=== PATIENT | female | born 1940 | race Caucasian/White ===

== ENCOUNTER 2017-01-02 16:41 | Emergency (ER) | payer OTHER, BC ==
--- NOTE | 2017-01-02 16:56 | PDOC ---
History of Present Illness - General History Source: Patient, Family Exam Limitations: No Limitations - History of Present Illness Initial Comments: 01/02/17 17:53 The patient is a 76 year old female, with a significant past medical history of C.Diff (resolved), shingles x2, who presents to the emergency department with lower back pain since Saturday morning. The daughter reports on Saturday taking the patient to an Urgent Care where she was discharged home with an medication ( cannot recall) after having negative lumbar spine x-rays. The daughter reports soon after taking the patient to her PCP, where she was prescribed a muscle relaxer, which has offered little to no relief of her pain since being prescribed. The daughter also notes finding a spot on her lower back that resembled her past shingles. The patient describes her pain as a burning sensation on both sides of her back that is localized at her lower back. The patients daughter reports giving her a heating pad and tylenol with no alleviation of her pain. She denies any recent lower back trauma or injury. She denies any SOB or chest pain. She denies any dysuria or cloudy urination. She denies any other complaints of pain. She denies recent fevers, chills, headache or dizziness. She denies recent nausea, vomit, diarrhea or constipation. Allergies: As per Nursing Notes. Past surgical history: Left THR (6 weeks ago), and right THR Social history: Nonsmoker. Denies EtOH use and recreational drug use. Primary Care Physician: <Gregory Arias - Last Filed: 01/02/17 17:53> - General History Source: Patient Exam Limitations: No Limitations <Bing Arroyo - Last Filed: 01/04/17 18:18> - General Chief Complaint: Back Pain Stated Complaint: back pain/uti/shingles Time Seen by Provider: 01/02/17 16:46 Past History <Gregory Arias - Last Filed: 01/02/17 17:53> - Psycho/Social/Smoking Cessation Hx Anxiety: No Suicidal Ideation: No Smoking History: Never smoked Hx Alcohol Use: No Substance Use Type: None <Bing Arroyo - Last Filed: 01/04/17 18:18> - Past Medical History Allergies/Adverse Reactions: Allergies Allergy/AdvReac Type Severity Reaction Status Date / Time celecoxib [From Celebrex] Allergy Unknown Verified 01/02/17 17:09 naproxen AdvReac Intermediate PALPITATION Verified 01/02/17 17:09 S Home Medications: Ambulatory Orders Cefpodoxime Proxetil [Vantin -] 100 mg PO BID #14 tablet 01/02/17 Cyclobenzaprine HCl [Flexeril 10 mg] 2.5 mg PO ASDIR PRN 01/02/17 Donepezil HCl [Aricept -] 0 mg PO DAILY 01/02/17 Review of Systems - Review of Systems Able to Perform ROS?: Yes Comments:: 01/02/17 17:53 GENERAL/CONSTITUTIONAL: No: fever, chills, weakness, loss of appetite. HEAD, EYES, EARS, NOSE AND THROAT: No: change in vision, ear pain, discharge, sore throat, throat swelling. CARDIOVASCULAR: No: chest pain, lightheadedness, palpitations, syncope RESPIRATORY: No: cough, shortness of breath, wheezing, hemoptysis, stridor. GASTROINTESTINAL: No: nausea, vomiting, diarrhea, abdominal cramping, rectal bleeding, constipation. GENITOURINARY: No: dysuria, hematuria, frequency, urgency, flank pain. MUSCULOSKELETAL: +Back pain. No: neck pain, joint pain, muscle swelling or pain SKIN : No: lesions, pallor, rash or easy bruising. NEUROLOGIC: No: headache, vertigo, paresthesias, weakness ENDOCRINE: No: unexplained weight gain or loss HEMATOLOGIC/LYMPHATIC: No: anemia, easy bleeding, swelling nodes. <Gregory Arias - Last Filed: 01/02/17 17:53> *Physical Exam - Vital Signs Last Vital Signs Temp Pulse Resp BP Pulse Ox 98 F 89 18 151/68 95 01/02/17 16:43 01/02/17 16:43 01/02/17 16:43 01/02/17 16:43 01/02/17 16:43 - Physical Exam Comments: 01/02/17 17:54 GENERAL: The patient is in no acute distress. HEAD: Normal with no signs of trauma. EYES: PERRLA, EOMI, sclera anicteric, conjunctiva clear. ENT: Ears normal, nares patent, oropharynx clear without exudates. Moist mucous membranes. NECK: Normal range of motion, supple without lymphadenopathy, JVD, or masses. LUNGS: Breath lori nds equal, clear to auscultation bilaterally. No wheezes, and no crackles. HEART: Regular rate and rhythm, normal S1 and S2 without murmur, rub or gallop. ABDOMEN: Soft, nontender, normoactive bowel sounds. No guarding, no rebound. No masses palpable. EXTREMITIES: Normal range of motion, no edema. No clubbing or cyanosis. No erythema, or tenderness. NEUROLOGICAL: Cranial nerves II through XII grossly intact. Normal speech. No focal neurological deficits. MUSCULOSKELETAL: Midline thoracic tenderness. SKIN: Warm, Dry, normal turgor, no rashes or lesions noted. <Gregory Arias - Last Filed: 01/02/17 17:53> ED Treatment Course - ADDITIONAL ORDERS Additional order review: Laboratory Results 01/02/17 17:32 Urine Color Yellow Urine Appearance Clear Urine pH 5.5 Ur Specific [place] 1.010 Urine Protein Negative Urine Glucose (UA) Negative Urine Ketones Negative Urine Blood Trace-lysed Urine Nitrite Positive Urine Bilirubin Negative Urine Urobilinogen 0.2 e.u/dl Ur Leukocyte Esterase 1+ H <Gregory Arias - Last Filed: 01/02/17 17:53> - LABORATORY CBC & Chemistry Diagram: 01/02/17 18:45 01/02/17 18:45 <Bing Arroyo - Last Filed: 01/04/17 18:18> Medical Decision Making - Medical Decision Making 01/02/17 16:56 A portion of this note was documented by scribe services under my direction. I have reviewed the details of the note, within reason, and agree with the documentation with the following case summary and management plan written by me. Nursing documentation reviewed and incorporated into medical decision making 01/02/17 18:18 THis is a 76 yo F brought in to the ER by her daughter due to back pain, concern for UTI, concern for shingles Symptoms began 5 days ago Pt has had lower back pain, and now upper back pain No trauma No fevers or chills No heavy lifting Pt describes pain as burning No radiation of pain into extremities or around the trunk Pain is now mild but it was more severe earlier Of note, patient's daughter is worried that she may have a urinary tract infection. Patient has a history of recurrent UTIs. Patient's daughter did a urine dipstick at home and states that was positive. 01/02/17 18:18 On examination right upper back lesion notes, with scab pt has midline thoracic tenderness to palpation Pt jumps in response to palpation of her back I do not believe this patient's presentation is consistent with Zoster She has midline tenderness, possible compress fracture 01/04/17 18:17 Laboratory Tests 01/02/17 17:32 Urine Ketones Negative Urine Blood Trace-lysed Urine Nitrite Positive Ur Leukocyte Esterase 1+ H Urine RBC 0-2 Urine WBC 10-20 Ur Epithelial Cells Few Urine Bacteria Many Labs pending Pt signed out to Dr Villegas anticipate discharge if labs nml Will reassess <Bing Arroyo - Last Filed: 01/04/17 18:18> *DC/Admit/Observation/Transfer - Attestations Scribe Attestion: 01/02/17 17:53 Documentation prepared by Gregory Arias, acting as medical or surgical instrument maker for Bing Arroyo MD. <Gregory Arias - Last Filed: 01/02/17 17:53> <Bing Arroyo - Last Filed: 01/04/17 18:18> Diagnosis at time of Disposition: UTI (lower urinary tract infection), Mid back pain - Discharge Dispostion Disposition: HOME Condition at time of disposition: Fair - Prescriptions Prescriptions: Cefpodoxime Proxetil [Vantin -] 100 mg PO BID #14 tablet - Patient Instructions Printed Discharge Instructions: DI for Urinary Tract Infection (UTI) Additional Instructions: For the urinary tract infection take Vantin 1 tablet twice a day for 10 days. For the back pain you can take tylenol 2 tablets 3 times a day with food don't take on an empty stomach. Follow up with Dr. CASTELLANOS call his office in the morning for an appointment tomorrow if possible. His phone number is [phone]. Return to the emergency department immediately with ANY new, persistent or worsening symptoms. Continue any medications as previously prescribed by your physician. You should follow up with your primary doctor as soon as possible regarding today's emergency department visit. . Please make sure your doctor reviews the results of your emergency evaluation. Thank you for coming to the Emergency Department today for your care. It was a pleasure to see you today. Please note that your evaluation is INCOMPLETE until you follow-up with your doctor.
[2017-01-02 17:15] VITALS: TEMP 98; BMI 27.4
[2017-01-02 17:41] LABS: PH,URINE 5.5 (4.5-8); URINE APPEARANCE Clear; URINE BILIRUBIN Negative (NEGATIVE); URINE BLOOD Trace-lysed (NEGATIVE); URINE GLUCOSE (UA) Negative (NEGATIVE); URINE KETONE Negative (NEGATIVE); URINE NITRITE Positive (NEGATIVE); URINE PROTEIN Negative (NEGATIVE); URINE UROBILINOGEN 0.2 E.U/dl (0.2-1.0)
[2017-01-02 17:43] LABS: URINE LEUK ESTERASE 1+ (NEGATIVE)
[2017-01-02 17:44] LABS: URINE COLOR YELLOW
[2017-01-02 17:59] LABS: URINE BACTERIA MANY /hpf (NEGATIVE); URINE RBC 0-2 /hpf (0-3)
[2017-01-02 19:02] LABS: BASOPHIL 0.3 % (0-2.0); EOSINOPHIL 3.9 % (0-4.5); MCH 27.7 pg (25.7-33.7); MCHC 33.2 g/dl (32.0-36.0); MEAN CELL VOLUME 83.5 fl (80-96); MEAN PLT VOLUME 9.5 fl (7.5-11.1); PLATELET COUNT 276 K/MM3 (134-434); RDW 13.9 % (11.6-15.6); WHITE BLOOD COUNT 7.8 K/mm3 (4.0-10.8)
[2017-01-02 19:10] LABS: ALK PHOS 86 U/L (32-92); ANION GAP 9 (8-16); BILIRUBIN,TOTAL 0.3 mg/dl (0.2-1.0); CO2 27 mmol/L (22-28); CREATININE 0.6 mg/dl (0.6-1.3); GLUCOSE,RANDOM 110 mg/dl (74-106); SGOT/AST 21 U/L (10-42); SGPT/ALT 18 U/L (10-40); TOT PROT 6.8 g/dl (6.4-8.3)
[2017-01-02] MEDS ORDERED: CEFPODOXIME PROXETIL 100 MG TABLET PO ONE (19:27)
--- NOTE | 2017-01-02 19:31 | PDOC ---
*Physical Exam - Vital Signs Last Vital Signs Temp Pulse Resp BP Pulse Ox 98 F 89 18 151/68 95 01/02/17 16:43 01/02/17 16:43 01/02/17 16:43 01/02/17 16:43 01/02/17 16:43 ED Treatment Course - LABORATORY CBC & Chemistry Diagram: 01/02/17 18:45 01/02/17 18:45 - ADDITIONAL ORDERS Additional order review: Laboratory Results 01/02/17 01/02/17 18:45 17:32 Sodium 141 Potassium 4.1 Chloride 105 Carbon Dioxide 27 Anion Gap 9 BUN 15 Creatinine 0.6 Creat Clearance w eGFR > 60 Random Glucose 110 H Calcium 9.0 Total Bilirubin 0.3 D AST 21 D ALT 18 D Alkaline Phosphatase 86 Total Protein 6.8 Albumin 4.0 D Urine Color Yellow Urine Appearance Clear Urine pH 5.5 Ur Specific [place] 1.010 Urine Protein Negative Urine Glucose (UA) Negative Urine Ketones Negative Urine Blood Trace-lysed Urine Nitrite Positive Urine Bilirubin Negative Urine Urobilinogen 0.2 e.u/dl Ur Leukocyte Esterase 1+ H Urine RBC 0-2 Urine WBC 10-20 Ur Epithelial Cells Few Urine Bacteria Many 01/02/17 18:45 RBC 4.72 MCV 83.5 MCHC 33.2 RDW 13.9 MPV 9.5 Neutrophils % 56.0 D Lymphocytes % 31.1 D Monocytes % 8.7 Eosinophils % 3.9 D Basophils % 0.3 Progress Note - Progress Note Progress Note: This is a 76-year-old female whose care was transferred to tn from Dr. rAroyo at 1900 hrs. Patient comes in complaining of some back pain and a urinary tract infection. Patient's urine does show moderate amount of white cells and bacteria and a urine culture was sent. Patient was given Vantin and a prescription for Vantin. Patient's blood work is otherwise normal there is no white count and left shift or any abnormalities of her chemistries. Patient had a thoracic spine x-ray that does show scoliosis with some degenerative type changes secondary to the scoliosis otherwise no acute pathology. A shunt discharged home will follow-up with her primary care doctor. *DC/Admit/Observation/Transfer Diagnosis at time of Disposition: UTI (lower urinary tract infection), Mid back pain - Discharge Dispostion Disposition: HOME Condition at time of disposition: Fair Admit: No - Prescriptions Prescriptions: Cefpodoxime Proxetil [Vantin -] 100 mg PO BID #14 tablet - Patient Instructions Additional Instructions: For the urinary tract infection take Vantin 1 tablet twice a day for 10 days. For the back pain you can take ibuprofen 2 tablets 3 times a day with food don' t take on an empty stomach. Return to the emergency department immediately with ANY new, persistent or worsening symptoms. Continue any medications as previously prescribed by your physician. You should follow up with your primary doctor as soon as possible regarding today's emergency department visit. . Please make sure your doctor reviews the results of your emergency evaluation. Thank you for coming to the Emergency Department today for your care. It was a pleasure to see you today. Please note that your evaluation is INCOMPLETE until you follow-up with your doctor.
[2017-01-02] MEDS ORDERED: NITROFURANTOIN MACROCRYSTAL 50 MG CAPSULE (FP) ONE (19:42)
--- NOTE | 2017-01-02 19:42 | PDOC ---
*Physical Exam - Vital Signs Last Vital Signs Temp Pulse Resp BP Pulse Ox 98 F 89 18 151/68 95 01/02/17 16:43 01/02/17 16:43 01/02/17 16:43 01/02/17 16:43 01/02/17 16:43 ED Treatment Course - LABORATORY CBC & Chemistry Diagram: 01/02/17 18:45 01/02/17 18:45 - ADDITIONAL ORDERS Additional order review: Laboratory Results 01/02/17 01/02/17 18:45 17:32 Sodium 141 Potassium 4.1 Chloride 105 Carbon Dioxide 27 Anion Gap 9 BUN 15 Creatinine 0.6 Creat Clearance w eGFR > 60 Random Glucose 110 H Calcium 9.0 Total Bilirubin 0.3 D AST 21 D ALT 18 D Alkaline Phosphatase 86 Total Protein 6.8 Albumin 4.0 D Urine Color Yellow Urine Appearance Clear Urine pH 5.5 Ur Specific [place] 1.010 Urine Protein Negative Urine Glucose (UA) Negative Urine Ketones Negative Urine Blood Trace-lysed Urine Nitrite Positive Urine Bilirubin Negative Urine Urobilinogen 0.2 e.u/dl Ur Leukocyte Esterase 1+ H Urine RBC 0-2 Urine WBC 10-20 Ur Epithelial Cells Few Urine Bacteria Many 01/02/17 18:45 RBC 4.72 MCV 83.5 MCHC 33.2 RDW 13.9 MPV 9.5 Neutrophils % 56.0 D Lymphocytes % 31.1 D Monocytes % 8.7 Eosinophils % 3.9 D Basophils % 0.3 *DC/Admit/Observation/Transfer Diagnosis at time of Disposition: UTI (lower urinary tract infection), Mid back pain - Discharge Dispostion Disposition: HOME Condition at time of disposition: Fair - Prescriptions Prescriptions: Cefpodoxime Proxetil [Vantin -] 100 mg PO BID #14 tablet - Patient Instructions Additional Instructions: For the urinary tract infection take Vantin 1 tablet twice a day for 10 days. For the back pain you can take tylenol 2 tablets 3 times a day with food don't take on an empty stomach. Follow up with Dr. CASTELLANOS call his office in the morning for an appointment tomorrow if possible. His phone number is [phone]. Return to the emergency department immediately with ANY new, persistent or worsening symptoms. Continue any medications as previously prescribed by your physician. You should follow up with your primary doctor as soon as possible regarding today's emergency department visit. . Please make sure your doctor reviews the results of your emergency evaluation. Thank you for coming to the Emergency Department today for your care. It was a pleasure to see you today. Please note that your evaluation is INCOMPLETE until you follow-up with your doctor.
[2017-01-02] MEDS ORDERED: NITROFURANTOIN MACROCRYSTAL 50 MG CAPSULE (FP) PO SCH (19:45)
[2017-01-02 19:49] VITALS: BP 138/62; PULSE 83
== END 2017-01-02 20:03 | disposition home or self-care (01) ==
LOC: FER 16:41
DX: N39.0 Urinary tract infection, site not specified (principal); M54.6 Pain in thoracic spine
CPT/HCPCS: 36415; 72070-TC; 80053; 81003; 81015; 85025; 87086; 87186; 99283-25

== ENCOUNTER 2018-05-28 13:35 | Emergency (ER) | payer OTHER, BC ==
[2018-05-28 13:53] VITALS: BP 159/67; PULSE 83; TEMP 98.6; BMI 27.4
--- NOTE | 2018-05-28 14:14 | PDOC ---
History of Present Illness - History of Present Illness Initial Comments: The patient is a 77 year old female with PMHx of HTN, who presents to the ER with her daughter s/p head injury from mechanical slip and fall. Patient states that she was was walking to the store from her house when she tripped and fell hitting the right side of her forehead. She states that she was helped up and proceeded to walk home. She denies any current headache, blurry vision, neck, back, or rib pain. Denies any recent illness. Denies taking blood thinners. Surgical Hx: Double hip replacement. Social Hx: Lives at home with her who is early stage Alzheimers. Daughter lives 5 minutes away. <Loulou Meredith - Last Filed: 05/28/18 14:18> - History of Present Illness Initial Comments: 05/28/18 14:39 Physical exam: Alert and oriented well-developed well-nourished no acute distress cheerful and cooperative Afebrile vital signs normal 2 cm contusion, hematoma, and abrasion right forehead. Mildly tender to palpation. No crepitus or depression. PERRLA 4 mm, fundi benign with good central venous pulsations and sharp disc margins. EOMs full without diplopia. Visual hernandez intact to confrontation No other facial bone deformity or tenderness including orbits. ENT clear Neck without tenderness or deformity. Full range of motion without pain Chest clear, full breath sounds bilaterally, no chest wall or rib cage tenderness or deformity CV regular without murmur rub or gallop Abdomen benign Neurological C2 to 12 intact. Strength full and symmetric. No focal sensory or motor deficits. Gait stable and unimpaired Extremities no CCE Impression: Head injury, no sign of serious intracranial trauma, however contusion and abrasion or present Plan: Wound scrubbed and dressed. Head injury instructions. To be observed carefully by her daughter through tomorrow morning. Fully ambulatory and in no distress upon discharge to follow-up as directed <Aidan Lema - Last Filed: 05/28/18 14:42> - General Chief Complaint: Injury Stated Complaint: FALL,HIT HEAD Time Seen by Provider: 05/28/18 13:54 Past History <Loulou Meredith - Last Filed: 05/28/18 14:18> - Past Medical History COPD: No Dementia: Yes HTN: Yes Other medical history: DEMENTIA - Suicide/Smoking/Psychosocial Hx Smoking History: Never smoked Have you smoked in the past 12 months: No Information on smoking cessation initiated: No Hx Alcohol Use: No Drug/Substance Use Hx: No Substance Use Type: None <Aidan Lema - Last Filed: 05/28/18 14:42> - Past Medical History Allergies/Adverse Reactions: Allergies Allergy/AdvReac Type Severity Reaction Status Date / Time celecoxib [From Celebrex] Allergy Unknown Verified 05/28/18 13:36 naproxen AdvReac Intermediate PALPITATION Verified 05/28/18 13:36 S Home Medications: Ambulatory Orders Cefpodoxime Proxetil [Vantin -] 100 mg PO BID #14 tablet 01/02/17 Donepezil HCl [Aricept -] 0 mg PO DAILY 01/02/17 Amlodipine Besylate 5 mg PO DAILY 05/28/18 Review of Systems - Review of Systems Comments:: CONSTITUTIONAL: Absent: fever, chills, diaphoresis, generalized weakness, malaise, loss of appetite HEENT: Absent: rhinorrhea, nasal congestion, throat pain, throat swelling, difficulty swallowing, mouth swelling, ear pain, eye pain, visual Changes CARDIOVASCULAR: Absent: chest pain, syncope, palpitations, irregular heart rate, lightheadedness , peripheral edema RESPIRATORY: Absent: cough, shortness of breath, dyspnea with exertion, orthopnea, wheezing, stridor, hemoptysis GASTROINTESTINAL: Absent: abdominal pain, abdominal distension, nausea, vomiting, diarrhea, constipation, melena, hematochezia GENITOURINARY: Absent: dysuria, frequency, urgency, hesitancy, hematuria, flank pain, genital pain MUSCULOSKELETAL: Absent: myalgia, arthralgia, joint swelling SKIN: PresentL Right sided forehead laceration & hematoma. Absent: rash, itching, pallor HEMATOLOGIC/IMMUNOLOGIC: Absent: easy bleeding, easy bruising, lymphadenopathy, frequent infections ENDOCRINE: Absent: unexplained weight gain, unexplained weight loss, heat intolerance, cold intolerance NEUROLOGIC: Absent: headache, focal weakness or paresthesias, dizziness, unsteady gait, seizure, mental status changes, bladder or bowel incontinence PSYCHIATRIC: Absent: anxiety, depression, suicidal or homicidal ideation, hallucinations. <Loulou Meredith - Last Filed: 05/28/18 14:18> *Physical Exam - Vital Signs Last Vital Signs Temp Pulse Resp BP Pulse Ox 98.6 F 83 20 159/67 96 05/28/18 13:36 05/28/18 13:36 05/28/18 13:36 05/28/18 13:36 05/28/18 13:36 <Loulou Meredith - Last Filed: 05/28/18 14:18> - Vital Signs Last Vital Signs Temp Pulse Resp BP Pulse Ox 98.6 F 83 20 159/67 96 05/28/18 13:36 05/28/18 13:36 05/28/18 13:36 05/28/18 13:36 05/28/18 13:36 <Aidan Lema - Last Filed: 05/28/18 14:42> *DC/Admit/Observation/Transfer - Attestations Scribe Attestion: 05/28/18 14:20 Documentation prepared by Loulou Meredith, acting as certified medical transcriptionist for Aidan Pillai MD. <Loulou Meredith - Last Filed: 05/28/18 14:18> - Discharge Dispostion Decision to Admit order: No <Aidan Lema - Last Filed: 05/28/18 14:42> Diagnosis at time of Disposition: Head injury Qualifiers: Encounter type: initial encounter Qualified Code(s): S09.90XA - Unspecified injury of head, initial encounter - Discharge Dispostion Disposition: HOME Condition at time of disposition: Stable - Patient Instructions Printed Discharge Instructions: DI for Closed Head Injury Additional Instructions: Return to ER if further symptoms develop. Otherwise follow-up with primary physician
== END 2018-05-28 14:42 | disposition home or self-care (01) ==
LOC: FER 13:35
DX: S09.90XA Unspecified injury of head, initial encounter (principal); W18.39XA Other fall on same level, initial encounter; Y93.89 Activity, other specified; Y92.89 Other specified places as the place of occurrence of the external cause; I10 Essential (primary) hypertension; F03.90 Unspecified dementia, unspecified severity, without behavioral disturbance, psychotic disturbance, mood disturbance, and anxiety
CPT/HCPCS: 99281-25

== ENCOUNTER 2022-03-04 14:14 | Emergency (ER) | payer OTHER, BC ==
[2022-03-04 14:39] VITALS: BP 141/67; PULSE 66; TEMP 98.1; BMI 26.5
[2022-03-04 15:05] LABS: CALCIUM OXALATE CRYSTALS FEW /hpf (NONE SEEN); EPITHELIAL CELLS FEW /hpf; URIC ACID CRYSTALS 1+ /hpf (NONE SEEN)
[2022-03-04 15:27] LABS: HEMATOCRIT 39.9 % (32.4-45.2); HEMOGLOBIN 13.9 G/dL (10.7-15.3); MCH 29.8 pg (25.7-33.7); MCHC 34.8 g/dl (32.0-36.0); MEAN CELL VOLUME 85.6 fl (80-96); MEAN PLT VOLUME 9.4 fl (7.5-11.1); PLATELET COUNT 230.4 10^3/uL (134-434); RBC 4.66 10^6/uL (3.60-5.2); RDW 14.4 % (11.6-15.6); WHITE BLOOD COUNT 10.3 10^3/uL (4.0-10.8)
[2022-03-04 15:39] LABS: ALBUMIN 3.9 g/dl (3.4-5.0); BILIRUBIN,TOTAL 0.6 mg/dl (0.2-1); CALCIUM 9.2 mg/dl (8.5-10); CREATININE 0.8 mg/dl (0.55-1.3); TOT PROT 6.6 g/dl (6.4-8.2)
[2022-03-04 15:40] LABS: PLATELET ESTIMATE ADEQUATE
== END 2022-03-04 16:39 | disposition home or self-care (01) ==
LOC: FER 14:14
DX: N39.0 Urinary tract infection, site not specified (principal)
CPT/HCPCS: 36415; 80053; 81003; 81015; 85025; 87086; 87186; 99283-25